=== PATIENT | female | born 1985 | race Asian ===

== ENCOUNTER 2017-07-06 17:04 | Emergency (ER) | payer OTHER ==
[2017-07-06 17:18] VITALS: BP 106/74
--- NOTE | 2017-07-06 17:47 | UC ---
Back Pain HPI - HPI Summary HPI Summary: 32 yo female with low back pain x 8 days no injury pain worse with bending/lifting pain radiates down left leg to post thigh occas radiates down to left foot no bowel or bladder dysfunction she just recently found out she is just moved here no PCP - History of Current Complaint Chief Complaint: UCBackPain Stated Complaint: BACK PAIN, AND LEG PAIN Time Seen by Provider: 07/06/17 17:24 Hx Obtained From: Patient Hx Last Menstrual Period: May 27, 2017 Onset/Duration: Gradual Onset Timing: Constant Severity Initially: Mild Severity Currently: Mild Pain Intensity: 4 Pain Scale Used: 0-10 Numeric Back Pain: Is Diffuse, Radiates To - to left leg Character: Aching, Throbbing Aggravating Factor(s): Movement, Lifting, Bending Alleviating Factor(s): Rest - Allergies/Home Medications Allergies/Adverse Reactions: Allergies Allergy/AdvReac Type Severity Reaction Status Date / Time No Known Allergies Allergy Verified 07/06/17 17:18 Home Medications: Home Medications NK [No Home Medications Reported] 07/06/17 [History Confirmed 07/06/17] PMH/Surg Hx/FS Hx/Imm Hx Previously Healthy: Yes - Surgical History Surgical History: Yes Surgery Procedure, Year, and Place: - Family History Known Family History: Positive: Hypertension - Social History Alcohol Use: None Substance Use Type: None Smoking Status (MU): Never Smoked Tobacco Review of Systems Constitutional: Negative Skin: Negative Eyes: Negative ENT: Negative Respiratory: Negative Cardiovascular: Negative Gastrointestinal: Negative Genitourinary: Negative Motor: Negative Neurovascular: Negative Musculoskeletal: Myalgia Neurological: Negative Psychological: Negative Is Patient Immunocompromised?: No All Other Systems Reviewed And Are Negative: Yes Physical Exam Triage Information Reviewed: Yes Appearance: Well-Appearing, No Pain Distress, Well-Nourished Vital Signs: Initial Vital Signs Temp 98.8 F 07/06/17 17:14 Pulse 87 07/06/17 17:14 Resp 18 07/06/17 17:14 BP 106/74 07/06/17 17:14 Pulse Ox 100 07/06/17 17:14 Eyes: Positive: Conjunctiva Clear ENT: Positive: Hearing grossly normal, Uvula midline. Negative: Nasal congestion, Nasal drainage, Hoarse voice Neck exam: Normal Neck: Positive: Supple, Nontender, No Lymphadenopathy Respiratory: Positive: Lungs clear, Normal breath sounds, No respiratory distress Cardiovascular: Positive: RRR, No Murmur Abdomen Description: Positive: Nontender, No Organomegaly Musculoskeletal: Positive: ROM Intact, No Edema Neurological: Positive: Alert Psychological Exam: Normal Skin Exam: Normal Back Pain Course/Dx - Differential Dx/Diagnosis Provider Diagnoses: left sciatica (acute) Discharge - Sign-Out/Discharge Documenting (check all that apply): Discharge/Admit/Transfer - Discharge Plan Condition: Stable Disposition: HOME Patient Education Materials: Sciatica (ED), Lower Back Exercises (ED) Referrals: [facility] [Outside] - As Soon As Possible (call this number for help finding follow up physician) Additional Instructions: tylenol for pain - Billing Disposition and Condition Condition: STABLE Disposition: HOME Images Front/Back of Body, Lg ([place]): 1 - pain here 2 - radiates here
== END 2017-07-06 17:50 | disposition home or self-care (01) ==
LOC: UCEAST 17:04
DX: M54.42 Lumbago with sciatica, left side (principal)
CPT/HCPCS: 99201; G0463

== ENCOUNTER 2017-07-16 17:51 | Emergency (ER) | payer OTHER ==
[2017-07-16 17:58] VITALS: BP 113/75
--- NOTE | 2017-07-16 18:11 | UC ---
Abdominal Pain Female HPI - HPI Summary HPI Summary: 32 year old female 7 weeks . c/o nausea and vomiting for one week, emesis 10-12 times daily. no vaginal bleed. second child. no blood in vomit. had same sx with 1st and needed zofran per pt and it works well and requesting at this time. no fever or chills - History of Current Complaint Chief Complaint: UCGI Stated Complaint: NAUSEA, AND VOMITING Time Seen by Provider: 07/16/17 18:10 Hx Obtained From: Patient Hx Last Menstrual Period: 05/27/17 Onset/Duration: Gradual Onset Timing: Constant Severity Initially: Mild Severity Currently: Moderate Pain Intensity: 0 Aggravating Factor(s): Nothing Alleviating Factor(s): Nothing Associated Signs and Symptoms: Positive: Negative, Nausea, Vomiting Allergies/Adverse Reactions: Allergies Allergy/AdvReac Type Severity Reaction Status Date / Time No Known Allergies Allergy Verified 07/16/17 17:59 PMH/Surg Hx/FS Hx/Imm Hx Previously Healthy: Yes - Surgical History Surgical History: Yes Surgery Procedure, Year, and Place: - Family History Known Family History: Positive: Hypertension - Social History Alcohol Use: None Substance Use Type: None Smoking Status (MU): Never Smoked Tobacco Review of Systems Gastrointestinal: Vomiting, Nausea Is Patient Immunocompromised?: No All Other Systems Reviewed And Are Negative: Yes Physical Exam Triage Information Reviewed: Yes Appearance: Well-Appearing, No Pain Distress, Well-Nourished Vital Signs: Initial Vital Signs Temp 97.7 F 07/16/17 17:56 Pulse 82 07/16/17 17:56 Resp 12 07/16/17 17:56 BP 113/75 07/16/17 17:56 Pulse Ox 100 07/16/17 17:56 Vital Signs Reviewed: Yes Eye Exam: Normal ENT Exam: Normal Dental Exam: Normal Neck exam: Normal Neck: Positive: 1 Respiratory Exam: Normal Cardiovascular Exam: Normal Abdominal Exam: Normal Abdomen Description: Positive: Other: Musculoskeletal Exam: Normal Neurological Exam: Normal Psychological Exam: Normal Skin Exam: Normal Abd Pain Female Course/Dx - Course Course Of Treatment: per pt had zofran previously and works well given at this time and also to have some for home to encourage PO intake and if any concerns RTO or go to ED - Differential Dx/Diagnosis Differential Diagnosis: Provider Diagnoses: Nausea / vomiting in Discharge - Sign-Out/Discharge Documenting (check all that apply): Discharge/Admit/Transfer - Discharge Plan Condition: Good Disposition: HOME Prescriptions: Ondansetron ODT TAB* [Zofran 4 MG Odt TAB*] 4 mg PO Q8H PRN #14 tab.odt PRN Reason: Nausea Patient Education Materials: Nausea and Vomiting in (ED) Referrals: Diego Mcintosh MD [Primary Care Provider] - 4 Days - Billing Disposition and Condition Condition: GOOD Disposition: HOME
[2017-07-16] MEDS ORDERED: Ondansetron ODT TAB* 4 MG PO ONE (18:30)
== END 2017-07-16 18:42 | disposition home or self-care (01) ==
LOC: UCEAST 17:51
DX: O26.891 Other specified pregnancy related conditions, first trimester (principal); O21.9 Vomiting of pregnancy, unspecified; Z3A.01 Less than 8 weeks gestation of pregnancy
CPT/HCPCS: 81003; 99212; A9270-GY; G0463

== ENCOUNTER 2018-02-25 06:08 | Inpatient (IN) | payer OTHER ==
--- NOTE | 2018-02-24 10:41 | HP ---
General Information - Reason for Visit Mrs. Pantoja is a 33 y/o with a at 39 1/7 weeks EGA. She has had a prior Section and after counseling for birthing options and encouraging a , she has had a change of decision and desires a repeat section. The patient is aware of the indications/contraindications, risks/benefits, common complications/side effects of the procedure and its relevant alternatives prior to making a decision. - General Information Maternal Age: 33 Grav: 2 Para: 1 SAB: 0 IEA: 0 Estimated Due Date: 03/03/18 Determined By: LMP Gestational Age in Weeks/Days: 39 1/7 Maternal Blood Type and Rh: O Positive - Results this Serology/RPR Result: Non-Reactive Rubella Result: Immune HBsAg Result: Negative HIV Result: Negative GBS Culture Result: Negative Past Medical History Delivery History: Hx C/Section, See Records Pertinent Past Medical History: See Records Pertinent Past Surgical History: See Records - section 2013- B[place] Pertinent Family History: See Records - MGF- CVD Review of Systems Constitutional: Comfortable CV Complaint: No Respiratory: Shortness of Breath: No Gastrointestinal: No Nausea/Vomiting Genitourinary: No Dysuria, No Bleeding, No Leaking Fluid Musculoskeletal: No Complaint, No Epigastric Pain Neurological: No Headache, No Visual Changes Movement: Normal Exam Allergies/Adverse Reactions: Allergies No Known Allergies Allergy (Verified 07/16/17 17:59) Temp 98.6 BP 125/80 RR 20 P 72 - Measurements Height: 5 ft 2 in Weight: 183 lb Body Mass Index (BMI): 33.5 Pre- Weight: 152 lb - Exam Breast: Breast Exam Deferred CVA: No CVA Tenderness Extremities: No Edema Heart: Normal Rhythm/Heart Sounds HEENT: No Significant Findings Lungs: Clear Bilaterally Rectal: Rectal Exam Deferred Reflexes: DTR 2+ Thyroid: No Thyromegaly - Abdominal Exam Abdomen Exam: Non-Tender, Fundal Height Consistent with Dates - Ultrasound/Biophysical Profile Ultrasound Status: Not Done Targeted Exam Findings See L&D Outpatient Visit Provider Note for Findings: N/A Cervical Exam: 1cm Effacement: 60% Station: -2 Presenting Part: Vertex Membrane Status: Intact Bleeding/Discharge: None EFM Findings - External Monitor Findings Baseline Heart Rate: 140 External Monitor Findings: Accelerations Present Contractions: None Assessment/Plan - Assessment at term, prior Section. - Obstetrical Risk Factors Obstetrical Risk Factors: Tobacco Use - Prior Section - Plan Plan: IV Hydration, Antibiotic Prophylaxis, C/S Delivery - Date/Time of Admission Date of Admission: 02/25/18 Time of Admission: 07:00
[2018-02-25] MEDS ORDERED: Sodium Citrate/Citric Acid* 15 ML UDC ONE (06:11)
[2018-02-25] MEDS ORDERED: ceFOXitin 2 GM IVPREMIX* 2 GM/50 ML BAG ONE (06:11)
[2018-02-25] MEDS ORDERED: ceFOXitin 2 GM IVPREMIX* 2 GM/50 ML BAG IVPB ONE (07:00)
[2018-02-25] MEDS ORDERED: Lactated Ringers 1000 ML Bag* 1,000 ML IV ONE (07:00)
[2018-02-25] MEDS ORDERED: Lactated Ringers 1000 ML Bag* 1,000 ML IV SCH ×2 (07:00→10:00)
[2018-02-25] MEDS ORDERED: Sodium Citrate/Citric Acid* 15 ML UDC PO ONE (07:00)
[2018-02-25] MEDS ORDERED: Bupivacaine-MPF SPINAL* 7.5 MG/ML - 2ML AMP ONE (07:46)
[2018-02-25] MEDS ORDERED: Morphine PF AMP (0.5MG/ML)* 5 MG/10 ML AMP ONE (07:46)
[2018-02-25] MEDS ORDERED: OXYTOCIN* 10 UNITS/ML 1 ML VIAL ONE (07:51)
[2018-02-25] MEDS ORDERED: Ondansetron INJ* 2 MG/ML VIAL ONE (07:51)
[2018-02-25] MEDS ORDERED: Ketorolac INJ* 30 MG/ML 1 ML VIAL ONE (07:51)
[2018-02-25] MEDS ORDERED: Phenylephrine INJ* 10 MG/ML 1 ML VIAL (10 MG) ONE (07:51)
[2018-02-25] MEDS ORDERED: Lidocaine 2% PF * 5 ML VIAL ONE (08:20)
[2018-02-25] MEDS ORDERED: DiMENhydriNATE IV* 50 MG/ML VIAL IV PUSH PRN ×2 (08:22→13:31)
[2018-02-25] MEDS ORDERED: HYDROmorphone INJ1* 1 MG/ML SYRINGE IV PRN (08:22)
[2018-02-25] MEDS ORDERED: Acetaminophen IV 1GM/100ML * 1,000 MG/100 ML VIAL IVPB ONE (08:22)
[2018-02-25] MEDS ORDERED: Naloxone* 0.4 MG/ML 1 ML VIAL IV PRN ×2 (08:22→08:28)
[2018-02-25] MEDS ORDERED: Nalbuphine* 10 MG/ML 1 ML VIAL IV PRN (08:28)
[2018-02-25] MEDS ORDERED: Ondansetron INJ* 2 MG/ML VIAL IV PRN (08:28)
[2018-02-25] MEDS ORDERED: Witch Hazel PAD* JAR TOPICAL PRN (09:23)
[2018-02-25] MEDS ORDERED: Dibucaine 1% 28.35 GM TUBE PR PRN (09:23)
[2018-02-25] MEDS ORDERED: Acetaminophen TAB* 325 MG PO PRN (09:23)
[2018-02-25] MEDS ORDERED: Glycerin ADULT SUPP PR PRN (09:23)
--- NOTE | 2018-02-25 12:07 | OP ---
OPERATIVE REPORT: DATE OF OPERATION: 02/25/18 - [facility] – [place] [id number] DATE OF : 83 SURGEON: Dr. Kit Hawkins. DIRECTOR OF LAND SURGEON: Dr. Laird. ANESTHESIA: Spinal. PRE-OP DIAGNOSIS: at 39 weeks with a previous section. POST-OP DIAGNOSIS: at 39 weeks with a previous section. OPERATIVE PROCEDURE: Repeat low-transverse section. ESTIMATED BLOOD LOSS: 600 cc. SPECIMEN SENT TO PATHOLOGY: Cord blood. FLUIDS: She received 1800 cc of IV crystalloid fluid. URINE OUTPUT: Clear. FINDINGS: Delivery of a viable female over clear fluid with a weight of 7 pounds 11 ounces with Apgars of 9 and 9 with a normal uterus, normal adnexa, bowel and bladder, and no complications. DESCRIPTION OF PROCEDURE: The patient was taken to the operating room where she was identified. She was placed on the operating table where a spinal anesthetic was obtained without difficulty. She was then placed in the supine position with a leftward tilt, prepped and draped in normal sterile fashion. A Pfannenstiel skin incision was made with a knife and carried through to the underlying layer of fascia. The fascia was then nicked in the midline, extended laterally with curved Cortes scissors. The fascia was then grasped superiorly and inferiorly with Mil clamps and dissected off sharply from the rectus muscle. The rectus muscle was in the midline bluntly. Peritoneum was identified, grasped with pickups and entered sharply with Metzenbaum scissors and extended superiorly and inferiorly sharply. A Mobius retractor was then inserted into the patient's abdomen. A bladder flap was created using Metzenbaum scissors. A low-transverse incision was made with a knife, extended laterally with bandage scissors. The amniotic sac was ruptured. The fluid was noted to be clear. The infant's head was then grasped and delivered atraumatically. The rest of the infant's body was then delivered. The cord was clamped and cut and the infant was handed off to awaiting solder leveler printed circuit boards. Cord bloods were obtained. The placenta was removed manually. The uterus was then cleared off all clot and debris with a moist laparotomy sponge. The uterine incision was then closed using 0 Polysorb suture in a running locked fashion with a second imbricating layer of 0 Polysorb suture. At this point, the uterine incision was noted to be hemostatic. The Mobius retractor was removed from the patient's abdomen. The gutters were then cleared off all clots and debris using moist laparotomy sponges. Sponges and all the instruments were removed from the patient's abdomen. The peritoneum was then closed using 3-0 Polysorb suture in a running fashion. The fascia was closed using 0 Polysorb suture in a running fashion and the skin was closed with 4-0 Monocryl subcuticular stitch. The patient tolerated the procedure well. Sponge, lap, and needle counts were correct x2. She was then transferred to recovery room area in stable condition. [id number]/[facility] #: [id number] MTDD
[2018-02-25] MEDS: Simethicone TAB* 80 MG TAB.CHEW PO SCH ×3 (12:20→21:01)
[2018-02-25] MEDS: Ibuprofen TAB* 600 MG PO SCH ×2 (15:39→21:01)
[2018-02-25] MEDS: oxyCODONE/Acetamin 5/325 MG* TAB PO PRN ×2 (17:23→21:55)
[2018-02-25] MEDS: Docusate CAP* 100 MG PO SCH ×2 (17:23→21:01)
[2018-02-26] MEDS ORDERED: Zolpidem TAB* 5 MG PO PRN
[2018-02-26] MEDS ORDERED: oxyCODONE/Acetamin 5/325 MG* TAB PO PRN
[2018-02-26] MEDS: oxyCODONE/Acetamin 5/325 MG* TAB PO PRN ×5 (02:14→23:33)
[2018-02-26] MEDS: Ibuprofen TAB* 600 MG PO PRN ×3 (04:37→17:41)
[2018-02-26 07:30] LABS: ABS Basophils 0 10^3/ul (0-0.2); ABS Eosinophils 0 10^3/ul (0-0.6); ABS Lymphocytes 1.4 10^3/ul (1.0-4.8); ABS Monocytes 0.5 10^3/ul (0-0.8); ABS Neutrophils 5.9 10^3/ul (1.5-7.7); ABS Nucleated RBC 0 10^3/ul; Eosinophil % 0.5 %; Hematocrit 31 % (35-47); Hemoglobin 10.2 g/dl (12.0-16.0); Lymphocyte % 18.2 %; Mean Corpuscular HGB Conc 33 g/dl (31-36); Mean Corpuscular Hemoglobin 29 pg (27-31); Mean Corpuscular Volume 87 fL (80-97); Nucleated Red Blood Cells % 0.1; Platelet Count 81 10^3/ul (150-450); Red Blood Count 3.53 10^6/ul (4.00-5.40); Red Cell Distribution Width 15 % (10.5-15); White Blood Count 7.9 10^3/ul (3.5-10.8)
[2018-02-26] MEDS: Docusate CAP* 100 MG PO SCH ×3 (08:39→20:50)
[2018-02-26] MEDS: Simethicone TAB* 80 MG TAB.CHEW PO SCH ×4 (08:39→20:50)
[2018-02-26] MEDS ORDERED: Ferrous Gluconate TAB* 324 MG TAB PO SCH (09:00)
[2018-02-26 09:07] LABS: Large Platelets Present
[2018-02-27] MEDS: oxyCODONE/Acetamin 5/325 MG* TAB PO PRN ×4 (03:36→19:57)
[2018-02-27] MEDS: Ibuprofen TAB* 600 MG PO PRN ×3 (04:56→18:49)
[2018-02-27] MEDS: Simethicone TAB* 80 MG TAB.CHEW PO SCH ×4 (08:37→19:57)
[2018-02-27] MEDS: Docusate CAP* 100 MG PO SCH ×3 (08:37→19:57)
[2018-02-28] MEDS: oxyCODONE/Acetamin 5/325 MG* TAB PO PRN ×3 (00:31→09:23)
[2018-02-28] MEDS: Ibuprofen TAB* 600 MG PO PRN (04:38)
[2018-02-28 07:46] VITALS: BP 123/70
[2018-02-28] MEDS: Simethicone TAB* 80 MG TAB.CHEW PO SCH (09:23)
[2018-02-28] MEDS: Docusate CAP* 100 MG PO SCH (09:23)
== END 2018-02-28 10:15 | disposition home or self-care (01) | DRG 788 ==
LOC: MCHOB 06:08
PROVIDERS: ADMIT Obstetrics & Gynecology; ATTEND Obstetrics & Gynecology
PROC: 10D00Z1 Extraction of Products of Conception, Low, Open Approach (ICD-10-PCS; principal; 2018-02-25 07:45)
DX: O34.211 Maternal care for low transverse scar from previous cesarean delivery (principal); Z3A.39 39 weeks gestation of pregnancy; Z37.0 Single live birth
CPT/HCPCS: 36415; 85025; 88720; 92587; A9270-GY; J0694; J1240; J1885; J2300; J2405; J2590